=== PATIENT | male | born 1985 | race Two or more races ===

== ENCOUNTER 2019-11-29 11:40 | Emergency (ER) | payer MEDICAID ==
[~2019-11-29] VITALS: Ht 165.1 cm; Wt 65.9 kg
[~2019-11-29 11:40] MED LIST: LIDOcaine 1% W/epiNEPHrine 1:100,000 20ml vial ONE
[2019-11-29 12:27] VITALS: BP 127/80
--- NOTE | 2019-11-29 13:23 | NUR ---
pt is 34 yo male c/o bleeding off and on to left 4th digit x 2days, dressing in place is dry and intact, had granuloma removed in September by instructional technology teacher, has follow up appt 12/14, waiting to be evaluated by provider
[2019-11-29] MEDS ORDERED: CEPH250T PO (14:54)
== END 2019-11-29 14:50 | disposition home or self-care (01) ==
LOC: ER 11:41
DX: L98.0 Pyogenic granuloma (principal); Z79.899 Other long term (current) drug therapy
CPT/HCPCS: 11420; 99283; 99284

== ENCOUNTER 2023-04-06 17:39 | Emergency (ER) | payer MEDICAID ==
[~2023-04-06] VITALS: Ht 165.1 cm; Wt 63.0 kg
[2023-04-06] MEDS ORDERED: BENZ-38 PO (20:25)
[2023-04-06 20:26] VITALS: BP 119/89; PULSE 102; RESP 16; TEMP 98.1; O2SAT 98
== END 2023-04-06 21:03 | disposition home or self-care (01) ==
LOC: ER 17:39
DX: J11.1 Influenza due to unidentified influenza virus with other respiratory manifestations (principal); Z20.822 Contact with and (suspected) exposure to COVID-19; Z79.899 Other long term (current) drug therapy
CPT/HCPCS: 36415; 87502; 87503; 87811; 99283